=== PATIENT | female | born 1970 | race Caucasian/White ===

== ENCOUNTER 2019-08-20 18:13 | Inpatient (IN) ==
[2019-08-20] MEDS ORDERED: Naloxone 0.4 MG/ML INJ IVP PRN (22:28)
[2019-08-20] MEDS ORDERED: Dextrose Gel 15 GM/37.5 ML TUBE PO PRN ×2 (23:18)
[2019-08-20] MEDS ORDERED: D5% in Water 1,000 ML IVC PRN (23:18)
[2019-08-20] MEDS ORDERED: *HR* Dextrose 50 % in Water (Syg) 50 ML SYRINGE IVP PRN (23:18)
[2019-08-21] MEDS: Insulin LISPRO 300 UNITS/3 ML VIAL SQ SCH ×4 (00:33→18:33)
[2019-08-21] MEDS: Acetaminophen 325 MG TABLET PO PRN ×3 (03:56→20:02)
[2019-08-21 06:08] LABS: Hematocrit 35.5 % (35.3-44.9); Hemoglobin 10.4 g/dL (11.5-15.4); Mean Corpuscular HGB Conc 29.3 g/dL (31.6-35.5); Mean Corpuscular Hemoglobin 29.6 pg (28.0-33.3); Mean Corpuscular Volume 101.1 fL (83.0-100.0); Mean Platelet Volume 11.1 fL (9.4-12.4); Platelet Count 229 K/mcL (140-400); Red Blood Count 3.51 M/mcL (3.82-4.97); Red Cell Distribution Width 16.2 % (11.5-14.5); White Blood Count 16.5 K/mcL (4.3-11.1)
[2019-08-21 06:27] LABS: Albumin 3.8 g/dL (3.5-5.7); Albumin/Globulin Ratio 1.3 (1.1-2.2); Bilirubin,Total 0.3 mg/dL (0.3-1.0); Globulin 2.9 g/dL (2.4-3.5); Magnesium 2.1 mg/dL (1.6-2.6); Phosphorous 8.5 mg/dL (2.7-4.5); Potassium 6.3 mEq/L (3.5-5.1); Total Protein 6.7 g/dL (6.4-8.9)
[2019-08-21] MEDS ORDERED: *HR* Heparin 10,000 UNIT/10 ML VIAL IV PRN ×2 (07:41→18:30)
[2019-08-21] MEDS ORDERED: 0.9 % Sodium Chloride 250 ML IVC PRN ×2 (07:41→18:30)
[2019-08-21] MEDS ORDERED: 0.9 % Sodium Chloride 1,000 ML PRIME SCH ×2 (07:45→18:30)
[2019-08-21] MEDS ORDERED: 0.9 % Sodium Chloride 1,000 ML ONE (07:52)
[2019-08-21 08:32] LABS: Hepatitis B Surface Antibody < 3.10 mIU/mL
[2019-08-21 08:43] LABS: Hepatitis B Surface Antigen Nonreactive (Nonreactive)
[2019-08-21] MEDS ORDERED: cefTRIAXone 1,000 MG in Water for inj. (sterile) 10 ML IVP SCH (09:00)
[2019-08-21] MEDS ORDERED: Insulin DETEMIR 100 UNIT/ML X5UNITS SQ ONE (11:36)
[2019-08-21] MEDS ORDERED: Calcium Gluconate 1gm/50mL 1 GM/50 ML BAG IVPB ONE (14:19)
[2019-08-21 14:20] LABS: INR 1.1; Prothrombin Time 12.7 Seconds (9.4-12.1)
[2019-08-21 14:23] LABS: Activated Partial Thrombo Time 29.9 Seconds (26.0-36.0)
[2019-08-21] MEDS ORDERED: Ondansetron 4 MG/2 ML VIAL IVP ONE ×2 (15:24→18:30)
[2019-08-21] MEDS ORDERED: *HR* OxyCODONE Immed Rel 5 MG TABLET PO PRN (15:24)
[2019-08-21] MEDS ORDERED: *HR* Promethazine 25 MG/ML VIAL IVP PRN (15:24)
[2019-08-21] MEDS ORDERED: *HR* FentaNYL (PF) 100 MCG/2 ML VIAL ONE (15:53)
[2019-08-21] MEDS ORDERED: *HR* Rocuronium Bromide 50 MG/5 ML VIAL ONE (15:54)
[2019-08-21] MEDS ORDERED: Lidocaine -MPF 1% 5 ML AMPUL ONE (15:54)
[2019-08-21] MEDS ORDERED: Ondansetron 4 MG/2 ML VIAL ONE (15:54)
[2019-08-21] MEDS ORDERED: *HR* Propofol 200 MG/20 ML VIAL IVP ONE (15:54)
[2019-08-21] MEDS ORDERED: Dexamethasone 4 MG/ML VIAL ONE (15:54)
[2019-08-21 17:23] LABS: Estimated Average Glucose 189 mg/dl
[2019-08-21] MEDS: *HR* HYDROmorphone (PF) 1 MG/ML SYRINGE IVP PRN ×2 (17:47→17:54)
[2019-08-21] MEDS ORDERED: *HR* Dextrose 50 % in Water (Syg) 50 ML SYRINGE IVP PRN (18:30)
[2019-08-21] MEDS ORDERED: D5% in Water 1,000 ML IVC PRN (18:30)
[2019-08-21] MEDS ORDERED: Dextrose Gel 15 GM/37.5 ML TUBE PO PRN ×2 (18:30)
[2019-08-21] MEDS ORDERED: Naloxone 0.4 MG/ML INJ IVP PRN (18:30)
[2019-08-22] MEDS: Insulin LISPRO 300 UNITS/3 ML VIAL SQ SCH ×6 (00:48→20:07)
[2019-08-22 04:27] LABS: Basophils % 0.1 %; Hematocrit 32.7 % (35.3-44.9); Hemoglobin 9.6 g/dL (11.5-15.4); Lymphocytes # 0.4 K/mcL (0.6-4.6); Lymphocytes % 1.7 %; Mean Corpuscular HGB Conc 29.4 g/dL (31.6-35.5); Mean Corpuscular Hemoglobin 30.3 pg (28.0-33.3); Mean Corpuscular Volume 103.2 fL (83.0-100.0); Mean Platelet Volume 11.3 fL (9.4-12.4); Monocytes # 1.1 K/mcL (0.0-1.3); Monocytes % 4.7 %; Neutrophils # 22.3 K/mcL (1.6-8.9); Platelet Count 189 K/mcL (140-400); Red Blood Count 3.17 M/mcL (3.82-4.97); Red Cell Distribution Width 16.3 % (11.5-14.5); Segmented Neutrophils % 92.5 %; White Blood Count 24.1 K/mcL (4.3-11.1)
[2019-08-22 04:46] LABS: Calcium 7.5 mg/dL (8.6-10.3); Potassium 4.6 mEq/L (3.5-5.1)
[2019-08-22 05:07] LABS: Platelet Estimate Normal (Normal)
[2019-08-22] MEDS ORDERED: Insulin DETEMIR 100 UNIT/ML X5UNITS SQ SCH (09:00)
[2019-08-22] MEDS ORDERED: 0.9 % Sodium Chloride 1,000 ML IVC SCH (09:00)
[2019-08-22] MEDS: cefTRIAXone 1,000 MG in Water for inj. (sterile) 10 ML IVP SCH (10:29)
[2019-08-22] MEDS ORDERED: Metoclopramide 10 MG/2 ML VIAL IVP ONE (15:04)
[2019-08-22] MEDS: Acetaminophen 325 MG TABLET PO PRN (16:25)
[2019-08-22] MEDS ORDERED: *HR* HYDROcodone/Acet 5/325 mg TABLET PO PRN (17:54)
[2019-08-22] MEDS: *HR* LORazepam 1 MG TABLET PO SCH (20:05)
[2019-08-22] MEDS: Insulin DETEMIR 100 UNIT/ML X5UNITS SQ SCH (20:07)
[2019-08-22] MEDS ORDERED: traZODone 50 MG TABLET PO SCH (21:00)
[2019-08-23 05:09] LABS: Calcium 7.4 mg/dL (8.6-10.3); Potassium 4.5 mEq/L (3.5-5.1)
[2019-08-23 05:23] LABS: Basophils % 0.2 %; Eosinophils # 0.1 K/mcL (0.0-0.6); Eosinophils % 0.6 %; Hemoglobin 9.6 g/dL (11.5-15.4); Immature Granulocytes % 0.5 % (0-4); Lymphocytes # 1.1 K/mcL (0.6-4.6); Lymphocytes % 6.6 %; Mean Corpuscular Hemoglobin 30.7 pg (28.0-33.3); Mean Corpuscular Volume 95.8 fL (83.0-100.0); Mean Platelet Volume 11.2 fL (9.4-12.4); Monocytes # 1.1 K/mcL (0.0-1.3); Monocytes % 6.8 %; Neutrophils # 13.8 K/mcL (1.6-8.9); Platelet Count 223 K/mcL (140-400); Red Blood Count 3.13 M/mcL (3.82-4.97); Red Cell Distribution Width 16.4 % (11.5-14.5); Segmented Neutrophils % 85.3 %; White Blood Count 16.2 K/mcL (4.3-11.1)
[2019-08-23] MEDS ORDERED: 0.9 % Sodium Chloride 250 ML IVC PRN (07:14)
[2019-08-23] MEDS ORDERED: *HR* Heparin 10,000 UNIT/10 ML VIAL IV PRN (07:14)
[2019-08-23] MEDS ORDERED: 0.9 % Sodium Chloride 1,000 ML PRIME SCH (07:15)
[2019-08-23] MEDS: cefTRIAXone 1,000 MG in Water for inj. (sterile) 10 ML IVP SCH (07:56)
[2019-08-23] MEDS: Insulin DETEMIR 100 UNIT/ML X5UNITS SQ SCH ×2 (07:56→20:29)
[2019-08-23] MEDS: Insulin LISPRO 300 UNITS/3 ML VIAL SQ SCH ×7 (07:57→20:29)
[2019-08-23] MEDS: Moxifloxacin OPTH Drops 3 ML BOTTLE BOTH EYES SCH ×2 (15:16→20:29)
[2019-08-23] MEDS: *HR* Heparin 5,000 UNIT/ML VIAL SQ SCH (20:28)
[2019-08-23] MEDS: *HR* LORazepam 1 MG TABLET PO SCH (20:28)
[2019-08-23] MEDS ORDERED: traZODone 50 MG TABLET PO SCH (21:00)
[2019-08-24] MEDS ORDERED: GI Cocktail 40 ML EACH PO ONE (03:37)
[2019-08-24 03:49] LABS: Basophils % 0.2 %; Eosinophils # 0.1 K/mcL (0.0-0.6); Eosinophils % 1.1 %; Hemoglobin 9.4 g/dL (11.5-15.4); Immature Granulocytes % 0.5 % (0-4); Lymphocytes % 9.1 %; Mean Corpuscular HGB Conc 32.4 g/dL (31.6-35.5); Mean Corpuscular Hemoglobin 30.8 pg (28.0-33.3); Mean Corpuscular Volume 95.1 fL (83.0-100.0); Mean Platelet Volume 10.9 fL (9.4-12.4); Monocytes # 1.1 K/mcL (0.0-1.3); Monocytes % 9.5 %; Platelet Count 244 K/mcL (140-400); Red Blood Count 3.05 M/mcL (3.82-4.97); Red Cell Distribution Width 16.2 % (11.5-14.5); Segmented Neutrophils % 79.6 %; White Blood Count 11.4 K/mcL (4.3-11.1)
[2019-08-24 04:12] LABS: Calcium 7.7 mg/dL (8.6-10.3); Magnesium 1.8 mg/dL (1.6-2.6); Potassium 3.8 mEq/L (3.5-5.1)
[2019-08-24 04:36] LABS: Folate 11.9 ng/mL (3.0-16.0)
[2019-08-24] MEDS: *HR* Heparin 5,000 UNIT/ML VIAL SQ SCH (05:12)
[2019-08-24] MEDS ORDERED: Pantoprazole 40 MG in 0.9 % Sodium Chloride Mini Bag 100 ML IVC SCH (05:45)
[2019-08-24] MEDS: Moxifloxacin OPTH Drops 3 ML BOTTLE BOTH EYES SCH (08:17)
[2019-08-24] MEDS: cefTRIAXone 1,000 MG in Water for inj. (sterile) 10 ML IVP SCH (08:17)
[2019-08-24] MEDS: Insulin DETEMIR 100 UNIT/ML X5UNITS SQ SCH (08:17)
[2019-08-24] MEDS: Insulin LISPRO 300 UNITS/3 ML VIAL SQ SCH ×2 (08:18)
[2019-08-24 10:50] VITALS: BP 135/78
[2019-08-24] MEDS ORDERED: Calcium Acetate 667 MG CAPSULE PO SCH (12:00)
[2019-08-24] MEDS ORDERED: FLU Vac QV 19-20 (6Month+)/PF 0.5 ML SYRINGE IM ONE (12:43)
== END 2019-08-24 13:59 | disposition home or self-care (01) | DRG 660 ==
LOC: 2ANU → SUATTDRO 21:06
PROVIDERS: ADMIT Internal Medicine; ATTEND Pharmacist